=== PATIENT | female | born 1960 | race African-American/Black ===

== ENCOUNTER 2019-01-06 16:43 | Inpatient (IN) | payer OTHER ==
[~2019-01-06] VITALS: Ht 162.6 cm; Wt 63.2 kg
[2019-01-06] MEDS ORDERED: FUROSEMIDE20 M1 ORAL (16:53)
--- NOTE | 2019-01-06 16:58 | Emergency Room Report ---
History of Present Illness General Chief Complaint: Abdominal Pain Source: Patient Present Illness HPI Patient presents with complaints of palpitation sensation increased nausea Patient reports getting the flu shot 2 weeks ago Denies any headache denies any chest pain Denies any vomiting Patient has some mid abdominal burning sensation as well Denies any diarrhea denies any recent travel It was reported the patient had some alcohol ingestion recently however patient reports that she only had one beer Patient also reports that she takes furosemide for her liver disease Allergies: Coded Allergies: No Known Allergies (Unverified , 01/06/19) Patient History Past Medical History: see triage record Reviewed Nursing Documentation: PMH: Agreed; PSxH: Agreed Nursing Documentation-PMH Past Medical History: No History, Except For Hx Cardiac Problems: Yes - unknown History Of Psychiatric Problem: Yes - anxiety Review of Systems All Other Systems: negative except mentioned in HPI Physical Exam Vital Signs Date Time Temp Pulse Resp B/P (MAP) Pulse Ox O2 Delivery O2 Flow Rate FiO2 01/06/19 16:46 98.8 127 18 142/83 (102) 98 Room Air Sp02 EP Interpretation: reviewed, normal General Appearance: no apparent distress Head: normocephalic, atraumatic Eyes: bilateral eye PERRL, bilateral eye EOMI ENT: hearing grossly normal, EOM grossly intact Neck: supple Respiratory: lungs clear, no respiratory distress, no retraction Cardiovascular #1: tachycardia Gastrointestinal: non tender, soft Genitourinary: no CVA tenderness Musculoskeletal: normal inspection Neurologic: alert, oriented x3 Skin: other - Some dependent edema both lower extremity Lymphatic: no adenopathy Medical Decision Making Diagnostic Impression: Primary Impression: Pyelonephritis Additional Impression: UTI (urinary tract infection) ER Course Multiple differentials are in consideration patient is concerning requiring multiple imaging and blood work Urine sample does show significant infectious etiology patient requires further hydration given the multiple episodes of vomiting Unable to tolerate oral intake patient appears to have complex Pyelonephritis and requires further inpatient care Labs Test 01/06/19 17:00 01/06/19 17:10 01/06/19 18:20 White Blood Count 10.8 K/UL (4.8-10.8) Red Blood Count 4.72 M/UL (4.20-5.40) Hemoglobin 14.8 G/DL (12.0-16.0) Hematocrit 44.8 % (37.0-47.0) Mean Corpuscular Volume 95 FL (80-99) Mean Corpuscular Hemoglobin 31.4 PG (27.0-31.0) Mean Corpuscular Hemoglobin Concent 33.0 G/DL (32.0-36.0) Red Cell Distribution Width 15.0 % (11.6-14.8) Platelet Count 176 K/UL (150-450) Mean Platelet Volume 6.3 FL (6.5-10.1) Neutrophils (%) (Auto) 64.3 % (45.0-75.0) Lymphocytes (%) (Auto) 18.9 % (20.0-45.0) Monocytes (%) (Auto) 14.3 % (1.0-10.0) Eosinophils (%) (Auto) 0.5 % (0.0-3.0) Basophils (%) (Auto) 1.9 % (0.0-2.0) Prothrombin Time 13.3 SEC (9.30-11.50) Prothromb Time International Ratio 1.3 (0.9-1.1) Activated Partial Thromboplast Time 33 SEC (23-33) Sodium Level 143 MMOL/L (136-145) Potassium Level 4.0 MMOL/L (3.5-5.1) Chloride Level 107 MMOL/L (98-107) Carbon Dioxide Level 19 MMOL/L (21-32) Anion Gap 17 mmol/L (5-15) Blood Urea Nitrogen 8 mg/dL (7-18) Creatinine 0.9 MG/DL (0.55-1.30) Estimat Glomerular Filtration Rate > 60 mL/min (>60) Glucose Level 99 MG/DL (74-106) Calcium Level 9.0 MG/DL (8.5-10.1) Phosphorus Level 3.8 MG/DL (2.5-4.9) Magnesium Level 1.7 MG/DL (1.8-2.4) Total Bilirubin 2.2 MG/DL (0.2-1.0) Direct Bilirubin 0.8 MG/DL (0.0-0.3) Aspartate Amino Transf (AST/SGOT) 48 U/L (15-37) Alanine Aminotransferase (ALT/SGPT) 24 U/L (12-78) Alkaline Phosphatase 127 U/L (46-116) Total Creatine Kinase 239 U/L (26-308) Creatine Kinase MB 1.6 NG/ML (0.0-3.6) Creatine Kinase MB Relative Index 0.6 Troponin I 0.021 ng/mL (0.000-0.056) Pro-B-Type Natriuretic Peptide 57 pg/mL (0-125) Total Protein 8.1 G/DL (6.4-8.2) Albumin 3.5 G/DL (3.4-5.0) Globulin 4.6 g/dL Albumin/Globulin Ratio 0.8 (1.0-2.7) Lipase 89 U/L (73-393) Serum Alcohol 8 mg/dL Urine Color Brown Urine Appearance Clear Urine pH 5 (4.5-8.0) Urine Specific [place] 1.030 (1.005-1.035) Urine Protein 2+ (NEGATIVE) Urine Glucose (UA) Negative (NEGATIVE) Urine Ketones 2+ (NEGATIVE) Urine Blood 5+ (NEGATIVE) Urine Nitrite Negative (NEGATIVE) Urine Bilirubin 1+ (NEGATIVE) Urine Ictotest Negative (NEGATIVE) Urine Urobilinogen 4 MG/DL (0.0-1.0) Urine Leukocyte Esterase 2+ (NEGATIVE) Urine RBC 10-15 /HPF (0 - 2) Urine WBC 5-10 /HPF (0 - 2) Urine Squamous Epithelial Cells Few /LPF (NONE/OCC) Urine Bacteria Many /HPF (NONE) Urine Coarse Granular Casts 5-10 /LPF (NONE) Urine Opiates Screen Negative (NEGATIVE) Urine Barbiturates Screen Negative (NEGATIVE) Phencyclidine (PCP) Screen Negative (NEGATIVE) Urine Amphetamines Screen Negative (NEGATIVE) Urine Benzodiazepines Screen Negative (NEGATIVE) Urine Cocaine Screen Negative (NEGATIVE) Urine Marijuana (THC) Screen Positive (NEGATIVE) Rhythm Strip Diag. Results EP Interpretation: yes Rate: 88 Rhythm: NSR, no PVC's, no ectopy Chest X-Ray Diagnostic Results Chest X-Ray Diagnostic Results : Chest X-Ray Ordered: Yes # of Views/Limited/Complete: 1 View Indication: Chest Pain EP Interpretation: Yes Interpretation: no consolidation, no effusion, no pneumothorax Impression: No acute disease Electronically Signed by: Derek Falcon, DO CT/MRI/US Diagnostic Results CT/MRI/US Diagnostic Results : Impression CT abdomen pelvisImpression: -Mild gallbladder wall thickening with minimal pericholecystic fluid, correlate clinically to exclude acute cholecystitis. -Prominent left hepatic lobe is mildly lobulated hepatic contour, this could be incidental or could represent a manifestation of chronic liver disease. Correlate clinically. -Fecal small bowel contents, which could be incidental or could represent a manifestation of slow intestinal transit. This could be a cause for pain. - Anterior abdominal wall midline soft tissue thickening and operative scarring miniscule 2 x 0.9 x 1.5 cm low-density focus in the midline axial image 36 potentially representing a postoperative fluid collection, correlate clinically Infection. -Subcentimeter likely benign hepatic segment VII tiny hypodensity, likely a benign cyst or hemangioma axial image 12. -Scattered minimal ASVD. -Large calcified uterine fibroid. -Degenerative spine findings. Last Vital Signs Date Time Temp Pulse Resp B/P (MAP) Pulse Ox O2 Delivery O2 Flow Rate FiO2 01/06/19 16:46 98.8 127 18 142/83 (102) 98 Room Air Status: improved Disposition: ADMITTED INPATIENT Condition: Serious Derek Falcon DO Jan 06, 2019 16:58
[2019-01-06 17:00] VITALS: BP 135/98
[2019-01-06] MEDS ORDERED: LORazepam Inj 2mg/ml 1ml IV ONE (17:00)
--- NOTE | 2019-01-06 17:00 | NUR ---
ED Nurse Note: Patient BIBA d/t abdominal pain and palpitations that started in the last hour. Patient c/o pain /10. Patient aao x 4 and ambulatory. Patient placed in gown and real estate associate attorney. No acute distress noted at this time.
[2019-01-06 17:19] LABS: BASOPHILS % (AUTO) 1.9 % (0.0-2.0); EOSINOPHILS % (AUTO) 0.5 % (0.0-3.0); HEMATOCRIT 44.8 % (37.0-47.0); HEMOGLOBIN 14.8 G/DL (12.0-16.0); LYMPHOCYTES % (AUTO) 18.9 % (20.0-45.0); MEAN CORPUSCULAR VOLUME 95 FL (80-99); MONOCYTES % (AUTO) 14.3 % (1.0-10.0); NEUTROPHILS % (AUTO) 64.3 % (45.0-75.0); PLATELET COUNT 176 K/UL (150-450); RED BLOOD COUNT 4.72 M/UL (4.20-5.40); WHITE BLOOD COUNT 10.8 K/UL (4.8-10.8)
[2019-01-06 17:22] LABS: APPEARANCE,URINE CLEAR; BILIRUBIN, URINE 1+ (NEGATIVE); COLOR,URINE BROWN; GLUCOSE, URINE (UA) NEGATIVE (NEGATIVE); KETONES,URINE 2+ (NEGATIVE); LEUKOCYTE ESTERASE ,URINE 2+ (NEGATIVE); NITRITE,URINE NEGATIVE (NEGATIVE); PH,URINE 5 (4.5-8.0); PROTEIN,URINE 2+ (NEGATIVE); UROBILINOGEN,URINE 4 MG/DL (0.0-1.0)
[2019-01-06 17:25] LABS: INR 1.3 (0.9-1.1)
[2019-01-06] MEDS ORDERED: Omnipaque-300 100ml vial INJ PRN (17:30)
[2019-01-06 17:32] LABS: ANION GAP 17 mmol/L (5-15); BLOOD UREA NITROGEN 8 mg/dL (7-18); CARBON DIOXIDE 19 MMOL/L (21-32); CHLORIDE 107 MMOL/L (98-107); CREATININE 0.9 MG/DL (0.55-1.30); SODIUM 143 MMOL/L (136-145)
[2019-01-06 17:41] LABS: ALANINE AMINOTRANSFERASE 24 U/L (12-78); ALBUMIN 3.5 G/DL (3.4-5.0); ALBUMIN/GLOBULIN RATIO 0.8 (1.0-2.7); ALKALINE PHOSPHATASE 127 U/L (46-116); ASPARTATE AMINO TRANSFERASE 48 U/L (15-37); BILIRUBIN,TOTAL 2.2 MG/DL (0.2-1.0); CKMB 1.6 NG/ML (0.0-3.6); CREATINE KINASE 239 U/L (26-308); PHOSPHORUS 3.8 MG/DL (2.5-4.9)
[2019-01-06 17:53] LABS: BILIRUBIN,DIRECT 0.8 MG/DL (0.0-0.3)
--- NOTE | 2019-01-06 17:55 | NUR ---
ED Nurse Note: Pt taken to CT
--- NOTE | 2019-01-06 18:05 | NUR ---
ED Nurse Note: Pt returned from CT in stable condition
--- NOTE | 2019-01-06 18:22 | Diagnostic Imaging Report ---
Clinical Indication: Nausea, palpitations, pain Technique: No oral contrast utilized, per emergency room physician request IV administration nonionic contrast. Venous phase spiral acquisition obtained through the abdomen and pelvis. Multiplanar reconstructions were generated. Total dose length product 921 mGycm. CTDIvol(s) 17 mGy. Dose reduction achieved using automated exposure control Comparison: none Findings: Lack of enteric contrast limits assessment of the GI tract. There no evidence of colonic diverticulosis or diverticulitis. The appendix is normal. No small bowel distention. No free or loculated intraperitoneal gas or fluid is evident. Distal esophagus, stomach, duodenum are unremarkable. There is slight hepatic surface nodularity, relative atrophy of the right lobe. There is a subcentimeter low-attenuation lesion in segment 7 near the dome. Varices are seen between the liver and the right kidney and inferior to the right kidney. These are from the superior mesenteric vein into the inferior vena cava. There are also some small periesophageal varices. The gallbladder demonstrates equivocal mild wall thickening. No definite radiopaque gallstones. Bile ducts, pancreas, spleen, adrenals, kidneys are unremarkable. No retroperitoneal or mesenteric mass or adenopathy. There is a large rim calcified mass centrally within the uterus which measures 6 cm diameter. No adnexal mass. There are some left paraovarian varicosities and prominence of the left ovarian vein. There is a midline surgical scar. There is a very small crescent-shaped fluid collection within the anterior abdominal wall musculature centrally which measures 20 mm transverse by 4 mm in thickness by 15 mm craniocaudad. The included lung bases demonstrate generalized mild groundglass opacity. The bones demonstrate degenerative spondylosis changes at the lumbosacral junction.. Impression: Evidence of hepatic cirrhosis, with atrophy of the right lobe and slight surface nodularity. Evidence of portal hypertension, with varices adjacent and inferior to the right kidney as well as small periesophageal varices Gallbladder wall thickening. Probably a manifestation of the drain is related to the hepatic disease, but the possibility of acute cholecystitis should also be considered Midline surgical scar. Tiny fluid collection within the abdominal wall musculature deep to the superficial scar may represent a small postoperative fluid collection, tiny abscess not excludable Large rim calcified mass within the uterus is consistent with a degenerated fibroid Left paraovarian varices and prominence of the left ovarian vein indicate likely left ovarian venous insufficiency and this can result in pelvic congestion syndrome Nonspecific faint basilar pulmonary parenchymal groundglass opacity. Subcentimeter low-attenuation liver lesion, too small to characterize, most likely benign simple cysts or bile hamartomas. No further follow-up necessary Degenerative spondylosis incidentally noted This essentially agrees with the preliminary interpretation provided overnight by [facility] teleradiology service. The CT scanner at [facility] is accredited by the [employer] and the scans are performed using protocols designed to limit radiation exposure to as low as reasonably achievable to attain images of sufficient resolution adequate for diagnostic evaluation.
[2019-01-06 18:27] VITALS: BP 132/65
--- NOTE | 2019-01-06 18:27 | NUR ---
ED Nurse Note: Patient sleeping in bed. No facial griamcing or guarding noted.
[2019-01-06] MEDS ORDERED: cefTRIAXone 1 GM in NS 55 ML IVPB ONE (18:30)
--- NOTE | 2019-01-06 19:19 | NUR ---
HAND-OFF: Report given to PRISCA Melvin.
--- NOTE | 2019-01-06 19:34 | NUR ---
ED Nurse Note: RN received verbal order of 1L NS running at 999ml/hr per Dr. Falcon. Will administer med as ordered. Endorsed it to PRISCA Melvin.
[2019-01-06] MEDS ORDERED: Sodium Chloride 1,900 ML IVLG ONE (19:45)
[2019-01-06] MEDS ORDERED: Enoxaparin 40mg Inj SUBQ SCH (21:00)
[2019-01-06 21:07] VITALS: BP 126/78
--- NOTE | 2019-01-06 21:07 | NUR ---
NURSE NOTES: Received pt from ED via saul. Pt transferred to [facility] without an incident. Received report from PRISCA Melvin. Pt is A/Ox4. reset merchandiser is in placed; pt is NSR. IV site intact, asymptomatic, and patent. Belongings list checked and signed by pt. Bed is in the lowest position and locked. Call light and bedside table within reach. No signs/symptoms of acute distress noted at this time. Received admission order from Dr. Shah. Will note and carry out.
--- NOTE | 2019-01-06 21:10 | NUR ---
TRANSFER TO FLOOR: Patient transferred to as ordered, per MYKEL Evans. Report given to . Belongings sent with pt
[2019-01-07] VITALS (7 sets, daily range): BP systolic 112–147; BP diastolic 57–88
--- NOTE | 2019-01-07 01:03 | NUR ---
NURSE NOTES: Contacted Dr. Shah regarding pt's Magnesium level (1.7); Dr. Shah ordered Magnesium 1 gm IVPB once.
--- NOTE | 2019-01-07 02:33 | NUR ---
NURSE NOTES: Observed pt asleep in bed. No signs/symptoms of acute distress noted at this time. Will continue plan of care.
--- NOTE | 2019-01-07 07:26 | NUR ---
NURSE NOTES: Report given to Dot Galvan RN. Plan of care endorsed.
--- NOTE | 2019-01-07 07:26 | NUR ---
NURSE NOTES: Report given to PRISCA Amos. Plan of care endorsed. Addendum: 01/07/19 at 1938 by Delma Bautista Mai, RN Report given to Dot Galvan RN NOT Dandre
--- NOTE | 2019-01-07 07:28 | NUR ---
NURSE NOTES: Received pt in bed, AAO x 4. Room air. No c/o of pain/distress. IV on L FA 20g intact and patent, running 1/2 NS @ 75 ml/hr. Bed in the lowest and locked. Call light within reach. Will continue to monitor
[2019-01-07 08:02] LABS: BASOPHILS % (AUTO) 2.1 % (0.0-2.0); HEMATOCRIT 37.8 % (37.0-47.0); HEMOGLOBIN 12.5 G/DL (12.0-16.0); LYMPHOCYTES % (AUTO) 28.7 % (20.0-45.0); MEAN CORPUSCULAR VOLUME 97 FL (80-99); MONOCYTES % (AUTO) 14.9 % (1.0-10.0); NEUTROPHILS % (AUTO) 53.3 % (45.0-75.0); PLATELET COUNT 142 K/UL (150-450); RED BLOOD COUNT 3.89 M/UL (4.20-5.40); RED CELL DISTRIBUTION WIDTH 14.5 % (11.6-14.8); WHITE BLOOD COUNT 8.9 K/UL (4.8-10.8)
[2019-01-07 08:17] LABS: ANION GAP 7 mmol/L (5-15); BLOOD UREA NITROGEN 9 mg/dL (7-18); CALCIUM 8.8 MG/DL (8.5-10.1); CARBON DIOXIDE 26 MMOL/L (21-32); CHLORIDE 109 MMOL/L (98-107); CREATININE 0.9 MG/DL (0.55-1.30); POTASSIUM 3.6 MMOL/L (3.5-5.1); SODIUM 142 MMOL/L (136-145)
[2019-01-07] MEDS ORDERED: Ascorbic Acid 500mg tab ORAL SCH (09:00)
[2019-01-07] MEDS ORDERED: Multivitamin w/Minerals tab ORAL SCH (09:00)
[2019-01-07] MEDS ORDERED: Furosemide 40mg tab ORAL SCH (09:00)
--- NOTE | 2019-01-07 09:19 | NUR ---
TRANSFER TO FLOOR: Patient transferred to [facility], per Dr. Shah. Report given to PRISCA Briseno. Belongings and medications given. Endorse plan of care
--- NOTE | 2019-01-07 10:54 | Diagnostic Imaging Report ---
Indication: Chest pain Technique: One view of the chest Comparison: none Findings: Lungs and pleural spaces are clear. Heart size is normal. Impression: No acute process
--- NOTE | 2019-01-07 13:05 | Cardiology Report ---
APPROVED REPORT EKG Measurement Heart [id number] Sinus tachycardia with occasional premature ventricular complexes Biatrial enlargement Left axis deviation Pulmonary disease pattern Incomplete right bundle branch block Left ventricular hypertrophy Cannot rule out Septal infarct, age undetermined Abnormal ECG
--- NOTE | 2019-01-07 14:00 | History and Physical Report ---
DATE OF ADMISSION: 01/06/2019 REASON FOR ADMISSION: 1. UTI/possible pyelonephritis. 2. Nausea and vomiting. HISTORY OF PRESENT ILLNESS: The patient is a 58-year-old female, who was admitted overnight for further evaluation and care of increased nausea and not feeling well. The patient got the flu shot approximately two weeks ago. No current vomiting, diarrhea, chest pain, shortness of breath. She has some mid abdominal burning sensation with urination. She was positive for marijuana and had alcohol consumption the night prior. She does take Lasix for her liver disease. She was initiated on IV antibiotics for urinary tract infection. ALLERGIES: No known drug allergies PAST MEDICAL HISTORY: 1. Liver disease. 2. Anxiety. SOCIAL HISTORY: The patient consumes alcohol and marijuana. FAMILY HISTORY: Positive for hypertension. PAST SURGICAL HISTORY: Noncontributory. REVIEW OF SYSTEMS: NEUROLOGIC: The patient denies headache, change in vision, syncope, or presyncopal episodes. CARDIOVASCULAR: No current chest pain, palpitations, or angina. PULMONARY: No difficulty breathing, productive cough, or sputum. GASTROINTESTINAL/GENITOURINARY: The patient is having some nausea. No vomiting or diarrhea. ENDOCRINOLOGY: No night sweats, fevers, or chills. MUSCULOSKELETAL: The patient feeling weak, tired, and fatigued. LABORATORY DATA: Laboratories dated January 06, 2019, sodium 143, potassium 4, creatinine 0.9. Lactic acid 2.1, magnesium 1.7. White cell count 10.8, hemoglobin 14.8, and platelet count 176. PHYSICAL EXAMINATION: VITAL SIGNS: Blood pressure 148/86, respiratory rate 19, pulse 105, temperature 97.7, and 97% oxygen saturation on room air. GENERAL: The patient awake, alert, not otherwise in distress. HEENT: Extraocular muscles intact. No lymphadenopathy. Oropharyngeal mucosa is clear and dry. CARDIOVASCULAR: S1, S2. No rubs or gallops. PULMONARY: Clear to auscultation bilaterally. No rales, rhonchi or wheezes. ABDOMEN: Nondistended and nontender. EXTREMITIES: No edema noted. ASSESSMENT AND PLAN: 1. UTI. At this time, continue Rocephin. The patient feeling much better. 2. Alcohol dependency with liver disease. We will continue folate, multivitamins, and vitamin C. The patient has requested her daily Lasix dose. 3. Hypertension. Does not take any blood pressure medications at home. Has had one isolated elevated blood pressure. We will discontinue IV fluids and continue to monitor. 4. GI prophylaxis with famotidine. 5. DVT prophylaxis with Lovenox subcutaneous. Gustavo Shah MD DR: FLORENCIA JOB#: [id number] CC:
--- NOTE | 2019-01-07 14:12 | NUR ---
*-* INSURANCE *-* ALL CLINICALS AND REVIEWS HAVE BEEN FAXED TO: MISSY GUERRERO: TIP REF# [id number] P: [phone] F: [phone] DISCHARGER PLANNING NEEDS F: [phone]
[2019-01-07] MEDS ORDERED: Omnipaque-300 100ml vial INJ PRN (17:30)
[2019-01-07] MEDS ORDERED: cefTRIAXone 1gm/NS 55ml IVPB SCH ×2 (18:30)
[2019-01-07] MEDS ORDERED: cefTRIAXone 1 GM in NS 55 ML IVPB SCH (18:30)
--- NOTE | 2019-01-07 19:59 | NUR ---
NURSE NOTES: Received patient awake in bed, talking on cellphone, able to make needs known, no s/s of acute distress. Bed low and locked, patient has non slip socks. Patient ambulatory, able to go to bathroom with minimal supervision. IV access patent currently running abx. Patient ate 75% of her dinner.
[2019-01-07] MEDS ORDERED: Enoxaparin 40mg Inj SUBQ SCH (21:00)
[2019-01-08 07:07] LABS: EOSINOPHILS % (AUTO) 2.3 % (0.0-3.0); HEMATOCRIT 37.1 % (37.0-47.0); HEMOGLOBIN 12.5 G/DL (12.0-16.0); MEAN CORPUSCULAR VOLUME 96 FL (80-99); MONOCYTES % (AUTO) 15.5 % (1.0-10.0); NEUTROPHILS % (AUTO) 42.3 % (45.0-75.0); PLATELET COUNT 142 K/UL (150-450); RED BLOOD COUNT 3.87 M/UL (4.20-5.40); RED CELL DISTRIBUTION WIDTH 14.3 % (11.6-14.8); WHITE BLOOD COUNT 8.7 K/UL (4.8-10.8)
--- NOTE | 2019-01-08 07:21 | NUR ---
HAND-OFF: Report given to PRISCA Green.
[2019-01-08 08:00] VITALS: BP 106/72
--- NOTE | 2019-01-08 08:00 | NUR ---
NURSE NOTES: received report from PRISCA Boyle. patient in bed. alert. oriented. verbally responsive. no respiratory distress noted/ no c/o pain at this time. skin itnact. IV on LFA 20 saline lock intact. bed in the lowest position and locked. call light within reach. will continue to provide plan of care.
[2019-01-08 08:15] LABS: ANION GAP 6 mmol/L (5-15); BLOOD UREA NITROGEN 7 mg/dL (7-18); CALCIUM 8.1 MG/DL (8.5-10.1); CARBON DIOXIDE 30 MMOL/L (21-32); CHLORIDE 107 MMOL/L (98-107); CREATININE 0.8 MG/DL (0.55-1.30); POTASSIUM 3.9 MMOL/L (3.5-5.1); SODIUM 143 MMOL/L (136-145)
--- NOTE | 2019-01-08 08:48 | Nephrology Progress Note ---
Assessment/Plan Assessment/Plan: A/P 1. UTI. - DC on Cipro for 5 days 2. Alcohol dependency with liver disease. Counselled on DCing 3. Hypertension. Stable 4. GI prophylaxis with famotidine. 5. DVT prophylaxis with Lovenox subcutaneous. Subjective Date patient seen: Jan 08, 2019 Time patient seen: 08:39 ROS Limited/Unobtainable: No Allergies: Coded Allergies: No Known Allergies (Unverified , 01/06/19) Subjective Patient much improved. Feels well. DC today Objective Last 24 Hour Vital Signs Date Time Temp Pulse Resp B/P (MAP) Pulse Ox O2 Delivery O2 Flow Rate FiO2 01/08/19 08:00 97.3 86 18 106/72 (83) 98 01/07/19 23:59 97.3 103 18 137/68 (91) 100 01/07/19 22:41 Room Air 01/07/19 20:00 97.9 99 18 113/66 (82) 100 01/07/19 16:00 98.5 95 17 122/73 (89) 100 01/07/19 12:00 98.1 97 18 112/67 (82) 98 01/07/19 09:21 105 Intake and Output 01/07/19 01/08/19 19:00 07:00 Intake Total 1200 ml 500 ml Balance 1200 ml 500 ml Intake Oral 1200 ml 500 ml # Voids 4 3 Laboratory Tests 01/08/19 04:25: White Blood Count 8.7, Red Blood Count 3.87L, Hemoglobin 12.5, Hematocrit 37.1, Mean Corpuscular Volume 96, Mean Corpuscular Hemoglobin 32.2H, Mean Corpuscular Hemoglobin Concent 33.6, Red Cell Distribution Width 14.3, Platelet Count 142L, Mean Platelet Volume 6.2L, Neutrophils (%) (Auto) 42.3L, Lymphocytes (%) (Auto) 38.0, Monocytes (%) (Auto) 15.5H, Eosinophils (%) (Auto) 2.3, Basophils (%) ( Auto) 2.0, Sodium Level 143, Potassium Level 3.9, Chloride Level 107, Carbon Dioxide Level 30, Anion Gap 6, Blood Urea Nitrogen 7, Creatinine 0.8, Estimat Glomerular Filtration Rate > 60, Glucose Level 88, Calcium Level 8.1L Height (Feet): 5 Height (Inches): 4.00 Weight (Pounds): 139 General Appearance: no apparent distress, alert EENT: normal ENT inspection Neck: normal alignment, supple Cardiovascular: normal rate, regular rhythm Respiratory/Chest: lungs clear, normal breath sounds Abdomen: non tender, soft Edema: no edema noted Arm (L), no edema noted Arm (R), no edema noted Leg (L), no edema noted Leg (R), no edema noted Pedal (L), no edema noted Pedal (R), no edema noted Generalized Gustavo Shah MD Jan 08, 2019 08:48
--- NOTE | 2019-01-08 08:50 | Discharge Instructions ---
Discharge Instructions Discharge Instructions Services at Discharge: day care Diet: 2 GM sodium (low sodium) Activity: resume normal activities Follow Up Orders Follow up PCP 1 week Complete Cipro for UTI For Congestive Heart Failure Reminder Report to your physician any weight gain of 5 pounds or more in one week. Gustavo Shah MD Jan 08, 2019 08:50
[2019-01-08] MEDS ORDERED: Multivitamin w/Minerals tab ORAL SCH (09:00)
[2019-01-08] MEDS ORDERED: Ascorbic Acid 500mg tab ORAL SCH (09:00)
[2019-01-08] MEDS ORDERED: Furosemide 40mg tab ORAL SCH (09:00)
[2019-01-08 12:00] VITALS: BP 115/66
--- NOTE | 2019-01-08 12:59 | NUR ---
NURSE NOTES: patient discharged to home with stable condition via taxi. alert. oriented. no respiratory distress noted. no c/o pain upon discharge. Provided dc packet and educated patient regarding care at home and medications. RN checked and counted belongings with patient. Removed IV and ID band. RN assisted patient to the lobby. patient left hospital safely. given irving to the spike driver.
--- NOTE | 2019-01-09 11:12 | Discharge Summary ---
Discharge Summary Discharge Summary _ Charge summary DATE OF ADMISSION: 01/06/2019 DATE OF DISCHARGE: 01/08/2019 DISCHARGED BY: Dr. Dr.De Gonsales REASON FOR ADMISSION: 58 years old female with past medical history of liver disease, anxiety, presented for nausea and overall not feeling well. Patient reported mid abdominal burning sensation with urination. Patient had flu shot about 2 weeks ago. No current vomiting, diarrhea,. No chest pain or shortness of breath. Patient is taking Lasix for liver disease. Upon evaluation in emergency department vital signs were stable. Laboratory work-up revealed no leukocytosis, stable hemoglobin and hematocrit. Stable electrolytes and renal parameters. Magnesium 1.7. Total bilirubin 2.2, direct bilirubin 0.8. AST 48 ALT, 24. Troponin 0.021, pro BNP 57. EKG revealed sinus tachycardia with occasional premature ventricular complexes. Incomplete right bundle branch block with left axis deviation. Pulmonary disease pattern. Serum alcohol level 8. Urinalysis revealed +2 ketones, +2 protein, +2 leukocyte esterase, pyuria and many bacteria. Urine toxicology screen was positive for marijuana. CT of the abdomen and pelvis revealed evidence of hepatic cirrhosis with atrophy of the right lobe and slight surface nodularity. Evidence of portal hypertension with varices. Patient started on empirical antibiotic for UTI , received 1 L of fluid , provided with antiemetics and admitted for further management. HOSPITAL COURSE: Patient admitted to medical surgical floor. Patient started on empiric antibiotics. DVT and GI prophylaxis provided. Patient started on folate , multivitamin . Magnesium was replaced. Antiemetic were on board as needed. DVT prophylaxis provided. Blood pressure was closely monitored . Patient remained normotensive, no need for antihypertensive medication at this time. Daily Lasix dose continued with close monitoring of volumes , electrolytes and renal parameters. Urine culture revealed mixed urogenital organisms. Supportive care provided. Patient was discharged on oral Cipro for additional 5 days. Patient was counseled on abstinence from alcohol use . Patient clinically stabilized and was ready for discharge home. FINAL DIAGNOSES: Probably UTI Alcohol dependency Alcoholic liver disease Hypomagnesemia DISCHARGE MEDICATIONS: See Medication Reconciliation list. DISCHARGE INSTRUCTIONS: Patient was discharged home Follow-up with primary care provider in 1 week. I have been assigned to dictate discharge summary for this account. I was not involved in the patient's management. Tracy Richards NP Jan 09, 2019 11:12
== END 2019-01-08 13:02 | disposition home or self-care (01) | DRG 463 ==
LOC: EDBD 16:43 → EMR 17:44 → EDBEDREQ 19:34 → EDBEDREQSVC 19:34 → 2E 19:35 → EDBEDREQ 20:39 → 2E 01-07 03:06 → 4E 01-07 09:17
DX: N39.0 Urinary tract infection, site not specified (principal); F10.20 Alcohol dependence, uncomplicated; I10 Essential (primary) hypertension; F41.9 Anxiety disorder, unspecified; I45.10 Unspecified right bundle-branch block; K70.9 Alcoholic liver disease, unspecified; E83.42 Hypomagnesemia; K76.6 Portal hypertension
CPT/HCPCS: 36415; 71045; 74177; 80048; 80053; 80307; 81003; 82248; 82550; 82553; 83605; 83690; 83735; 83880; 84100; 84484; 85025; 85610; 85730; 87086; 93005; 96365; 96375; 99285; G0480; J2405; J7030

== ENCOUNTER 2019-04-24 12:04 | Emergency (ER) | payer OTHER ==
[~2019-04-24] VITALS: Ht 162.6 cm; Wt 68.0 kg
[2019-04-24 11:28] VITALS: BP 162/104
[~2019-04-24 12:04] MED LIST: FUROSEMIDE20 M1 ORAL
[2019-04-24] MEDS ORDERED: ZYRTEC10 MG ORAL (12:33)
[2019-04-24] MEDS ORDERED: NAPROXEN250 MG ORAL (12:33)
[2019-04-24] MEDS ORDERED: GUAIFENESIN DM118 M1 ORAL (12:33)
--- NOTE | 2019-04-24 12:33 | Emergency Room Report ---
History of Present Illness General Chief Complaint: Flu Like Symptoms Source: Patient Present Illness HPI 58-year-old female, presents with cough, congestion, body aches, subjective fever/chills she has been in contact with other sick individuals no known aggravating relieving factors severity is mild, constant patient presents for evaluation denies any chest pain or shortness of breath COVID-19 risk:Contact w/high r: No COVID-19 risk:Travel to affect: No Has patient experienced saleh: Yes Coronavirus symptoms experienc: Cough, Runny Nose Allergies: Coded Allergies: No Known Allergies (Unverified , 01/06/19) Patient History Past Medical History: see triage record Reviewed Nursing Documentation: PMH: Agreed; PSxH: Agreed Nursing Documentation-PMH Hx Cardiac Problems: No Hx Cancer: No Hx Gastrointestinal Problems: No Hx Neurological Problems: No Review of Systems All Other Systems: negative except mentioned in HPI Physical Exam Vital Signs Date Time Temp Pulse Resp B/P (MAP) Pulse Ox O2 Delivery O2 Flow Rate FiO2 04/24/19 11:28 98.4 100 19 162/104 100 04/24/19 11:28 Room Air Sp02 EP Interpretation: reviewed, normal General Appearance: well appearing, no apparent distress, alert Head: normocephalic, atraumatic Eyes: bilateral eye PERRL, bilateral eye EOMI ENT: uvula midline, moist mucus membranes, nasal congestion Neck: supple, thyroid normal, supple/symm/no masses Respiratory: lungs clear, no respiratory distress, no retraction, no accessory muscle use Cardiovascular #1: normal peripheral pulses, regular rate, rhythm, no edema, no gallop, no murmur Gastrointestinal: non tender, soft, no guarding, no rebound Musculoskeletal: normal inspection Neurologic: alert, oriented x3 Psychiatric: mood/affect normal Skin: no rash, warm/dry Medical Decision Making Diagnostic Impression: Primary Impression: Viral syndrome ER Course 58-year-old female presents with most likely a viral syndrome Counseled patient about social isolation, symptomatic control Disposition home with return precautions if she worsens she will return back to the ED Last Vital Signs Date Time Temp Pulse Resp B/P (MAP) Pulse Ox O2 Delivery O2 Flow Rate FiO2 04/24/19 11:28 98.4 100 19 162/104 (123) 100 04/24/19 11:28 Room Air Disposition: HOME, SELF-CARE Condition: Stable Scripts Guaifenesin/Dextromethorphan* (Guaifenesin Dm Syrup*) 5 Ml Syrup 10 ML ORAL Q8H PRN for For Cough, #118 ML Prov: Sharan Morales MD 04/24/19 Cetirizine Hcl* (ZYRTEC*) 10 Mg Tablet 10 MG ORAL DAILY PRN for congestion, #30 TAB 0 Refills Prov: Sharan Morales MD 04/24/19 Naproxen* (NAPROSYN*) 250 Mg Tablet 250 MG ORAL TID PRN for For Pain, #20 TAB 0 Refills Prov: Sharan Morales MD 04/24/19 Referrals: [facility] Patient Instructions: Upper Respiratory Infection, Adult, [id number] Additional Instructions: The patient was provided with discharge instructions, notified to follow-up with a primary care doctor and or specialist in the next 24-48 hours, and to return to the ED if they have worsening of their symptoms. Please note that this report is being documented using [employer] technology. This can lead to erroneous entry secondary to incorrect interpretation by the dictating instrument. Please self isolate for 14 days until symptoms resolve. Please practice social isolation. Strongly recommend proper hand hygiene. Sharan Morales MD Apr 24, 2019 12:33
[2019-04-24] MEDS ORDERED: VITAMIN C500 M1 ORAL (12:47)
[2019-04-24 12:50] VITALS: BP 158/65
== END 2019-04-24 12:50 | disposition home or self-care (01) ==
LOC: EMR 12:30
DX: B34.9 Viral infection, unspecified (principal)
CPT/HCPCS: 99282

== ENCOUNTER 2019-04-27 05:12 | Emergency (ER) | payer OTHER ==
[~2019-04-27] VITALS: Ht 162.6 cm; Wt 61.2 kg
[~2019-04-27 05:12] MED LIST changes: +GUAIFENESIN DM118 M1 ORAL; +NAPROXEN250 MG ORAL; +VITAMIN C500 M1 ORAL; +ZYRTEC10 MG ORAL
[2019-04-27 05:30] VITALS: BP 160/98
--- NOTE | 2019-04-27 05:32 | Emergency Room Report ---
History of Present Illness General Chief Complaint: Palpitations Source: Patient Present Illness HPI This is a 58-year-old female with history of high blood pressure and anxiety. She presents with chief complaint of shortness of breath. Also complaint of palpitation. Onset for last couple days. She was here to 3 days ago with upper respiratory type of infection. She complained of subjective fever chills. She said she felt her heart skipping beats. Worse when she exerts herself. Worse when she walks. No nausea no vomiting. [place] anxious. Denies any other complaint. Nothing made it better. Nothing made it worse. COVID-19 risk:Contact w/high r: No COVID-19 risk:Travel to affect: No Has patient experienced saleh: No Coronavirus symptoms experienc: Cough, Runny Nose Allergies: Coded Allergies: No Known Allergies (Unverified , 01/06/19) Patient History Past Medical History: see triage record, old chart reviewed, HTN, psych hx Past Surgical History: none Pertinent Family History: none Social History: Denies: smoking Last Menstrual Period: n/a Now: No Immunizations: other Reviewed Nursing Documentation: PMH: Agreed; PSxH: Agreed Nursing Documentation-PMH Past Medical History: No History, Except For Hx Cardiac Problems: No - sleep apnea Hx Cancer: No Hx Gastrointestinal Problems: No Hx Neurological Problems: No Review of Systems Eye: Denies: eye pain, blurred vision ENT: Denies: ear pain, nose congestion, throat swelling Respiratory: Reports: shortness of breath; Denies: cough Cardiovascular: Reports: palpitations; Denies: chest pain Gastrointestinal: Denies: abdominal pain, diarrhea, nausea, vomiting Musculoskeletal: Denies: back pain, joint pain Skin: Denies: rash Neurological: Denies: headache, numbness Endocrine: Denies: increased thirst, increased urine Hematologic/Lymphatic: Denies: easy bruising All Other Systems: negative except mentioned in HPI Physical Exam Vital Signs Date Time Temp Pulse Resp B/P (MAP) Pulse Ox O2 Delivery O2 Flow Rate FiO2 04/27/19 05:15 98.1 97 18 160/98 (118) 98 Room Air Vitals with high blood pressure Sp02 EP Interpretation: reviewed, normal General Appearance: well appearing, no apparent distress, alert Head: normocephalic, atraumatic Eyes: bilateral eye PERRL, bilateral eye EOMI ENT: hearing grossly normal, normal pharynx Neck: full range of motion, supple, no meningismus Respiratory: chest non-tender, lungs clear, normal breath sounds Cardiovascular #1: regular rate, rhythm, no murmur Gastrointestinal: normal bowel sounds, non tender, no mass, no organomegaly, no bruit, non-distended Musculoskeletal: back normal, normal range of motion, gait/station normal Psychiatric: anxious Medical Decision Making Diagnostic Impression: Primary Impression: Palpitations Additional Impression: Anxiety attack ER Course Patient presents with palpitation and short of breath. She is not tachycardic or tachypneic here. Oxygenation is hard percent on room air. I see no evidence of ACS, PE, dissection to my view. CBC is unremarkable but differential showed elevated monocyte count. This is probably secondary to a viral infection. She is sleeping comfortably here. Blood pressure much improved. Will discharge home. EKG Diagnostic Results Rate: normal Rhythm: NSR ST Segments: other - Nonspecific ST changes Rhythm Strip Diag. Results EP Interpretation: yes Rate: 90 Rhythm: NSR, no PVC's, no ectopy Chest X-Ray Diagnostic Results Chest X-Ray Diagnostic Results : Chest X-Ray Ordered: Yes # of Views/Limited/Complete: 1 View Indication: Shortness of Breath EP Interpretation: Yes Interpretation: no consolidation, no effusion, no pneumothorax, no acute cardiopulmonary disease Impression: No acute disease Electronically Signed by: Mendoza Gautam MD Last Vital Signs Date Time Temp Pulse Resp B/P (MAP) Pulse Ox O2 Delivery O2 Flow Rate FiO2 04/27/19 05:15 98.1 97 18 160/98 (118) 98 Room Air Status: improved Disposition: HOME, SELF-CARE Condition: Stable Referrals: [facility],REFERRING (PCP) Patient Instructions: Palpitations Additional Instructions: Follow-up with your doctor in 7 days. Return if symptoms worsen. Mendoza Gautam MD Apr 27, 2019 05:32
[2019-04-27 05:57] LABS: BASOPHILS % (AUTO) 2.2 % (0.0-2.0); EOSINOPHILS % (AUTO) 1.4 % (0.0-3.0); HEMATOCRIT 40.8 % (37.0-47.0); HEMOGLOBIN 14.2 G/DL (12.0-16.0); LYMPHOCYTES % (AUTO) 28.7 % (20.0-45.0); MEAN CORPUSCULAR VOLUME 96 FL (80-99); MONOCYTES % (AUTO) 14.2 % (1.0-10.0); NEUTROPHILS % (AUTO) 53.6 % (45.0-75.0); PLATELET COUNT 122 K/UL (150-450); RED BLOOD COUNT 4.26 M/UL (4.20-5.40); RED CELL DISTRIBUTION WIDTH 13.4 % (11.6-14.8); WHITE BLOOD COUNT 8.8 K/UL (4.8-10.8)
[2019-04-27 06:10] LABS: ANION GAP 14 mmol/L (5-15); BLOOD UREA NITROGEN 11 mg/dL (7-18); CARBON DIOXIDE 25 MMOL/L (21-32); CHLORIDE 104 MMOL/L (98-107); CREATININE 0.7 MG/DL (0.55-1.30); POTASSIUM 3.1 MMOL/L (3.5-5.1); SODIUM 143 MMOL/L (136-145)
[2019-04-27 06:29] VITALS: BP 144/71
[2019-04-27 06:30] VITALS: BP 144/71
--- NOTE | 2019-04-27 06:37 | Diagnostic Imaging Report ---
EXAM: XR Chest, 1 View CLINICAL HISTORY: SOB TECHNIQUE: Frontal view of the chest. COMPARISON: 01/06/19. FINDINGS: Lungs: There is decreased inspiratory effort with subtle increased density in the right infrahilar region which may represent confluence of markings versus early infiltrate. Remainder of the lungs are clear. Pleural space: Unremarkable. No pneumothorax. Heart: Unremarkable. No cardiomegaly. Mediastinum: Unremarkable. Bones/joints: Unremarkable. Other findings: Borderline enlarged, most likely due to technique. IMPRESSION: [place] of markings versus early/mild right lower lobe infiltrate, clinical correlation recommended. Otherwise normal chest x-ray.
== END 2019-04-27 06:30 | disposition home or self-care (01) ==
LOC: EMR 05:27
DX: R00.2 Palpitations (principal); F41.9 Anxiety disorder, unspecified; I10 Essential (primary) hypertension; G47.30 Sleep apnea, unspecified
CPT/HCPCS: 36415; 71045; 80048; 83880; 84484; 85025; 93005; Z7502; 99283